=== PATIENT | female | born 1995 | race Caucasian/White ===

== ENCOUNTER 2019-11-24 19:26 | Emergency (ER) | payer MEDICAID ==
[~2019-11-24] VITALS: Ht 165.1 cm; Wt 81.8 kg
[~2019-11-24 19:26] MED LIST: CEFTIN500 MG PO; FLEXERIL5 MG PO; IBU800 M1 PO; IMPLANON; IMPLANON68 MG ID; MILLIPRED DP5 MG; MOTRIN 800800 MG/TAB PO; NO HOME MEDICATIONS; NORCO 325 MG-51 TAB PO; VISTARIL 2525 MG/CAP PO; ZOVIRAX400 MG PO
[2019-11-24 19:29] VITALS: TEMP 97.7
[2019-11-24 20:15] VITALS: BP 114/73; PULSE 65
[2019-11-24] MEDS ORDERED: PERCOCET 325 MG1 TA2 PO (20:48)
[2019-11-24] MEDS ORDERED: CRUTCHES MC (21:00)
== END 2019-11-24 21:33 | disposition home or self-care (01) ==
LOC: COL.ER 19:26
DX: S82.302A Unspecified fracture of lower end of left tibia, initial encounter for closed fracture (principal); S82.832A Other fracture of upper and lower end of left fibula, initial encounter for closed fracture; W19.XXXA Unspecified fall, initial encounter; X50.1XXA Overexertion from prolonged static or awkward postures, initial encounter; Y92.009 Unspecified place in unspecified non-institutional (private) residence as the place of occurrence of the external cause
CPT/HCPCS: J1170; J1200; J2250; J2405; J3010; Q4041